=== PATIENT | female | born 1940 | race Caucasian/White ===

== ENCOUNTER 2021-04-03 06:08 | Day surgery (SDC) | payer MEDICARE, OTHER, SELFPAY ==
--- NOTE | 2021-04-02 17:28 | W.PM.HP.N ---
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 Palliative care has failed to keep her comfortable and she has opted for surgical intervention. [facility] Medical History Anxiety GERD (gastroesophageal reflux disease) Surgical History History of bunionectomy Hx of tonsillectomy Social History Smoking/Tobacco Use Status: Never Smoking risk assessment performed?: Yes Alcohol Intake: current Alcohol Intake frequency: holidays/special occasions only Drug use: Never Substance use type: does not use Do you feel safe at home: Yes Do you feel safe in your relationship?: Yes Meds Allergies and Home Medications Allergies Allergy/AdvReac Type Severity Reaction Status Date / Time No Known Allergies Allergy Unverified 04/01/21 14:50 Home Medications Medication Instructions Recorded Confirmed Type ascorbic acid (vitamin C) 500 mg PO DAILY 04/01/21 04/01/21 History fluoxetine 20 mg PO DAILY 04/01/21 04/01/21 History omeprazole 10 mg PO DAILY 04/01/21 04/01/21 History Exam Narrative Exam Narrative: Heads Normocephalic eyes PERRLa Hearing is adequate Heart had RRR, no gallops or murmurs noted Lung hollins are clear abdomin is sofr Peripheral puses at the ankle a +1/4, no edema 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 She understands that reconstruction is possible but has decided to proceed with an amputation ot the [facility]. All questions have been answered, Informed consent obtained. She is aware of the posoibility of pain, scarring, infection and the permanency of the procedure.
[2021-04-03 06:18] VITALS: BP 134/64; PULSE 68; RESP 17; TEMP 36.5; O2SAT 96
[2021-04-03] MEDS: Lactated Ringers 1,000 ML 80 ML IV (06:51)
--- NOTE | 2021-04-03 07:09 | W.ANESPRE ---
General Info Date of Service Date Performed: 04/03/21 Height: 5 ft 1.5 in Weight: 56.6 kg Body Mass Index (BMI): 23.1 Surgical Procedure: Operation Date: 04/03/21 07:40 Proposed Procedures Side Surgeon p Hammer Toe Repair Right Chandu Rivas DPM Meds Allergies and Home Medications Allergies Allergy/AdvReac Type Severity Reaction Status Date / Time No Known Allergies Allergy Unverified 04/03/21 06:23 Home Medication Medication Instructions Recorded ascorbic acid (vitamin C) 500 mg PO DAILY 04/01/21 fluoxetine 20 mg PO DAILY 04/01/21 omeprazole 10 mg PO DAILY 04/01/21 Current Visit Medications: Current Medications Generic Name Dose Route Start Last Admin Trade Name Freq PRN Reason Stop Dose Admin Sodium Chloride 500 mls @ 0 mls/hr 04/03/21 06:00 Saline 500ml Bag IV PRN PRN As Directed Cefazolin Sodium/Dextrose 1 gm in 50 mls @ 100 mls/hr 04/03/21 06:00 Ancef Duplex IVPB 04/03/21 16:00 PREOP LYDIA Ringer's Solution 1,000 mls @ 80 mls/hr 04/03/21 06:00 04/03/21 06:51 IV 05/02/21 23:59 80 mls/hr INFUSION LYDIA Administration IV Miscellaneous Supplies 1 each 04/03/21 06:00 Iv Access IV DIRECTED LYDIA IV Miscellaneous Supplies 1 each 04/03/21 06:00 Iv Access IV 05/02/21 23:59 DIRECTED LYDIA Povidone Iodine 0 ml 04/03/21 06:00 Povidone-Iodine Soln. 118 Ml Btl TP DIRECTED LYDIA Sodium Chloride 0 ml 04/03/21 06:00 Normal Saline Flush 10 Ml Syr IVP PRN PRN Sodium Chloride 0 ml 04/03/21 06:00 Normal Saline Flush 10 Ml Syr IV 05/02/21 23:59 PRN PRN Sodium Chloride 0 ml 04/03/21 06:00 Normal Saline 10 Ml Vial IJ 05/02/21 23:59 DIRECTED PRN Sterile Water 0 ml 04/03/21 06:00 Water,Injection,Sterile 10 Ml Vial IJ 05/02/21 23:59 DIRECTED PRN [facility] Medical History Medical History Anxiety GERD (gastroesophageal reflux disease) Surgical History Surgical History History of bunionectomy Hx of tonsillectomy Tobacco Smoking/Tobacco Use Status: Never Alcohol Alcohol Intake: current Alcohol intake frequency: holidays/special occasions only Substance Use Substance use: Never Substance use type: does not use Vital Signs and Lab Results Vital Signs Most Recent Vital Signs in EMR: Most Recent Vital Signs Temp Pulse Resp BP Pulse Ox 36.5 C 68 17 134/64 96 04/03/21 06:18 04/03/21 06:18 04/03/21 06:18 04/03/21 06:18 04/03/21 06:18 Lab Results Blood Type / Crossmatch: No Data to Display Complete Blood Count: No Data to Display Complete Metabolic Panel: No Data to Display Liver Function Panel: No Data to Display Coagulation Panel: No Data to Display Cardiac Panel: No Data to Display Arterial Blood Gas: No Data to Display Venous Blood Gas: No Data to Display Pancreas Panel: No Data to Display Thyroid Panel: No Data to Display Infectious Disease: No Data to Display Blood Cultures: No Data to Display Toxicology Panel: No Data to Display Anesthesia Assessment and Plan Anesthesia History Personal History: No History of Anesthesia Complications Family History: No Family History of Anesthesia Complications Exercise Tolerance Exercise Tolerance: Metabolic Equivalents>4 Pertinent Negatives Pertinent Negatives: No Symptoms of GERD, No Major Cardiovascular Symptoms or Complaints and No Major Pulmonary Symptoms or Complaints Cardiac & Pulmonary Exam Cardiac Exam: Normal S1/S2 Heart Sounds Pulmonary Exam: Clear Bilateral Breath Sounds Airway Exam Known Difficult Airway: No Mallampati Class: 1 Mouth Opening: Normal (> 3cm) Thyromental Distance: Greater than 3 cm Neck Range of Motion: Full ROM Neck Circumference: Normal Teeth Condition: Normal Dentition ASA Classification ASA Score: ASA 2 Emergency Case?: No NPO Status NPO Status: NPO Clears >2 hours, Solids >8 hours Anesthesia Plan Resuscitation Status: Full Code Anesthesia Technique: MAC Anesthesia Airway Planned: Natural Airway Monitors Used: Standard Monitors
[2021-04-03 07:11] VITALS: BMI 23.1
[2021-04-03] MEDS: ceFAZolin 1 GM/50 ML BAG IVPB (07:30)
[2021-04-03] MEDS: Bupivacaine 0.5% Pres-Free 30 ML VIAL (07:45)
[2021-04-03] MEDS: Lidocaine 1% Multi-Dose 50 ML VIAL (07:45)
[2021-04-03] MEDS: Dexamethasone 4 MG/ML VIAL (08:00)
--- NOTE | 2021-04-03 08:09 | W.PM.DSUDISC ---
Discharge Plan Disposition Patient Disposition: HOME Condition: Good Discharge Details Reason For Visit: Amputation right second toe Attending Provider: Chandu Rivas Primary Care Provider: Edilberto Hunter [place] Meds and New Rx's Prescriptions: New oxycodone-acetaminophen 5-325 mg tablet 1 tab PO Q6H PRN (Reason: pain) Qty: 7 RF: 0 ibuprofen 600 mg tablet 600 mg PO Q6H PRN (Reason: Pain and inflammation) Qty: 30 RF: 0 Continued omeprazole 10 mg Capsule,Delayed Release(Dr/Ec) 10 mg PO DAILY RF: 0 fluoxetine 20 mg capsule 20 mg PO DAILY RF: 0 ascorbic acid (vitamin C) 500 mg Capsule 500 mg PO DAILY RF: 0 Discharge Instructions Activity:: Elevate Remove Dressings/Wound Care:: Do Not Remove Shower/Bathe:: Cover Diet:: Normal Diet Discharge Orders Discharge Orders: Discharge Order (Routine); Ordered 04/03/21 Ordered By: Chandu Rivas DS: Diagnosis Discharge Diagnosis (1) Hammertoe of right foot: Status: Acute
--- NOTE | 2021-04-03 08:12 | W.PM.OP ---
Date of service: 04/03/21 Time of Service: 08:13 Operative Note Operative Note Refer to Anesthesia Record Ana was brought to the operative suite placed in the supine position with the right foot prepped and draped in the usual sterile podiatric fashion. Anesthesia was achieved through general IV and local block of the right second toe utilizing 17 cc of a 50: 50 mixture 1% lidocaine plain, 0.5% Marcaine plain. Timeout was performed for safe surgery by protocol. Attention was directed to the right foot which was exsanguinated and a well-padded ankle tourniquet inflated 250 mmHg. Attention was directed to the right second toe with 2 converging semielliptical incisions were placed starting at the base of the proximal phalanx and extending medially and laterally terminating at the base of the proximal phalanx plantarly. The incision was deepened in controlled depth fashion starting dorsally going through the subcu tissue going through the extensor tendon down to bone. The joint capsule was then released utilizing a 15 scalpel. The incision was then continued medially and laterally going through the flexor tendon plantarly and releasing the capsule plantarly. The second toe was removed from the operative field. Copious irrigation was performed. The extensor and flexor tendons were repaired end-to-end with 3-0 Vicryl. The skin was then coapted with simple interrupted suture of 4-0 nylon. 4 mg DEXA phosphate was infused deeply into the wound. Xeroform fluffs Curlex dressings applied. Tourniquet was released at 13 minutes with vascularity returning to the remainder of the right foot. Ana left the OR with vital signs stable vascular status intact sharp and sponge counts were correct. Should be followed by myself in the office next week.
[2021-04-03 08:13] VITALS: BP 109/59; PULSE 68; RESP 16; TEMP 36.4; O2SAT 95
--- NOTE | 2021-04-03 08:53 | W.ANESPOSTOP ---
Postoperative Evaluation Date, Time and Location Date Performed: 04/03/21 Time Performed: 08:15 Patient Location: Day Surgery Unit Vital Signs Most Recent Imported Vital Signs: Most Recent Vital Signs Temp Pulse Resp BP Pulse Ox 36.4 C L 68 16 109/59 L 95 04/03/21 08:13 04/03/21 08:13 04/03/21 08:13 04/03/21 08:13 04/03/21 08:13 Pain Score Most Recent Pain Score: Most Recent Pain Score Pain Level 0 04/03/21 08:13 Assessment Mental Status: Awake (Alert & Oriented to Patient Baseline) Airway and Respiratory Function: Patent airway with normal (patient baseline) respiratory exam Cardiovascular Function: Hemodynamically Stable Hydration Status: Adequately Hydrated Nausea & Vomiting: No Nausea or Vomiting Pain: Pt. Denies Any Pain Peripheral Nerve Block: Patient did not receive a nerve block
[2021-04-03 09:03] VITALS: BP 116/66; PULSE 65; RESP 17; TEMP 36.5; O2SAT 99
== END 2021-04-03 09:03 | disposition home or self-care (01) ==
PROVIDERS: PCP Neuromusculoskeletal Medicine & OMM; Visit Provider Podiatrist
PROC: (CPT 28285; principal; 2021-04-03 07:30)
DX: M20.41 Other hammer toe(s) (acquired), right foot (principal); K21.9 Gastro-esophageal reflux disease without esophagitis; F41.9 Anxiety disorder, unspecified
CPT/HCPCS: 28285; J0690; J1100